=== PATIENT | female | born 2000 | race Two or more races ===

== ENCOUNTER 2023-07-26 12:58 | Emergency (ER) | payer OTHER, SELFPAY ==
[2023-07-26 12:59] VITALS: BP 135/84; PULSE 74; RESP 16; TEMP 37; O2SAT 98; BMI 22.9
--- NOTE | 2023-07-26 13:02 | ED_ITS ---
HPI - General Adult General Chief complaint: Eye Problems Stated complaint: r eye issue Time Seen by Provider: 07/26/23 13:01 Source: patient Mode of arrival: ambulatory Limitations: no limitations History of Present Illness HPI narrative: Patient is a 22 year old assigned female at with no reported medical history presenting to the emergency department today with right eye swelling. Patient states that last week she had false eye lashes placed and yesterday, she noticed pain in her right eye and was removing discharge that she believes was nail glue from her right eye. Patient states that she had the lashes removed yesterday and woke up today with a swollen eye. Patient denies any dizziness, lightheadedness, abdominal pain, nausea, vomiting, fever, chills, blurry vision, double vision, loss of vision, chest pain, difficulty breathing, shortness of breath, back pain, night sweats, pain with urination, increased urinary frequency, increased urinary urgency, blood in her urine or stool, syncope or a near syncopal episode, recent trauma or falls, bowel incontinence, bladder incontinence, bowel retention, bladder retention, or any other complaints at this time. Onset (ago): hour(s) Location: eyes and right Severity: mild Relieving factors: none Exacerbating factors: none Associated symptoms: denies other symptoms Treatments prior to arrival: none Related Data Previous Rx's Medication Instructions Recorded erythromycin 5 mg/gram (0.5 %) eye 0.5 inch ophthalmic (eye) Q4H #3.5 07/26/23 ointment grams Allergies Allergy/AdvReac Type Severity Reaction Status Date / Time No Known Allergies Allergy Verified 07/26/23 13:03 Review of Systems Constitutional: Constitutional: Reports no additional constitutional complaints, Denies chills, Denies fever(s) and Denies night sweats Eyes: Eyes: Reports no additional eye complaints, Denies blurry vision, Denies change in vision, Denies diplopia, Reports eye discharge, Denies loss of vision and Reports eye pain ENT: Denies dizziness Cardiovascular: Cardiovascular: Reports no additional cardiovascular complaints, Denies chest pain, Denies lightheadedness, Denies Loss of Consciousness and Denies dyspnea Respiratory: Respiratory: Reports no additional respiratory complaints and Denies dyspnea Gastrointestinal: Gastrointestinal: Reports no additional gastrointestinal complaints, Denies abdominal pain, Denies melena, Denies hematochezia, Denies change in bowel habits and Denies change in stool character Genitourinary: Genitourinary: Denies hematuria, Denies urinary frequency, Denies dysuria, Denies urinary incontinence, Denies urinary hesitancy and Denies urinary urgency Musculoskeletal: Musculoskeletal: Reports no additional musculoskeletal complaints, Denies numbness and Denies tingling Neurologic: Denies dizziness, Denies loss of vision, Denies numbness and Denies tingling Psychiatric: Psychiatric: Reports no additional psychiatric complaints Endocrine: Endocrine: Reports no additional endocrine complaints Hematologic/Lymphatic: Hematologic/Lymphatic: Reports no additional hematologic/lymphatic complaints Allergic/Immunologic: Allergic/Immunologic: Reports no additional allergic/immunologic complaints PMFSH Past Medical History Attestation statement: The following information was validated with the patient. Source: old records reviewed and nursing notes reviewed Social History Social History Advance Directives: No Advance Directives Information Provided: No Physical Exam ED Vital Signs: Vital Signs - 24 hr 07/26/23 12:59 Temperature 98.6 F Pulse Rate 74 Respiratory Rate 16 Blood Pressure 135/84 Pulse Oximetry 98 Oxygen Delivery Method Room Air BMI result Body Mass Index 22.9 Const General: cooperative, no acute distress, alert and awake Nutritional Appearance: well nourished Orientation/consciousness: patient oriented x3 Limitations: no limitations HENMT Head: Yes normal to inspection and Yes atraumatic Ears: hearing grossly normal bilaterally and external ears normal General nose exam: Normal external nose present, no nasal discharge noted and no epistaxis Face and sinus: Yes normal facial exam, No abrasion and No laceration Mouth: Normal oral and palatal mucosa present, no drooling and no muffled voice Eyes Other: right corneal abrasion with periorbital swelling Pupils: Equal, round and reactive pupils present EOM: EOMs intact bilaterally Neck Neck: Yes normal visual inspection, Yes full ROM and Yes no lymphadenopathy Chest Chest palpation & inspection: normal inspection of the chest Resp Effort & Inspection: normal respiratory effort and able to speak in complete sentences GI Inspection: Yes normal to inspection Neuro General: patient oriented x3 and moves all extremities Cranial nerves: Yes Equal, round and reactive pupils present Cognition (Neuro): normal cognition Motor exam (neuro): 5/5 motor strength present throughout Sensory Exam: Normal double simultaneous stimulation for sensation Coordination: [id number]-[id number] test normal Extrem General: Yes normal to inspection, Yes full ROM and Yes capillary refill normal Psych Appearance: grossly normal Mental Status: mental status grossly normal Affect: normal affect Attitude: cooperative Thought process: Normal thought process present Thought content: Normal thought content present Insight: Good insight present (Psych) Medical Decision Making Medical Decision Making MDM Narrative: Patient is a 22 year old assigned female at with no reported medical history presenting to the emergency department today with right eye pain. Patient's physical exam was as noted in the physical exam portion of this note. I explained my physical exam findings to the patient. I answered all questions asked by the patient. I stressed the importance of the patient taking her medication as prescribed. I stressed the importance of the patient following up with her primary care provider. I stressed the importance of the patient returning to the emergency department immediately if her symptoms were to worsen or if she were to develop any dizziness, shortness of breath, difficulty breathing, chest pain, blurry vision, loss of vision, nausea, vomiting, abdominal pain, fever, chills, back pain, or any other complaints. Patient verbalized agreement and understanding with this treatment plan and discharge. Differential Diagnosis Differential Diagnoses: The differential diagnosis associated with the presentation includes Right corneal abrasion Admission/Observation Consideration of admission/observation: Escalation of care including admission/observation considered Patient would have been admitted to the hospital had her work up had any findings where hospital admission was appropriate and her clinical presentation warranted hospital admission. Prescription Management I considered prescription management with: Antibiotic (patient prescribed an antibiotic for her corneal abrasion) Discharge Plan Discharge Clinical Impression: Abrasion, corneal Patient Disposition: Home, Self-Care Instructions: Corneal Abrasion (DC) Additional Instructions: Follow up with your primary care provider and an intelligence operations specialist. Return to the emergency department immediately if your symptoms worsen or if you develop any dizziness, shortness of breath, difficulty breathing, chest pain, blurry vision, loss of vision, nausea, vomiting, abdominal pain, fever, chills, back pain, or any other complaints. Prescriptions: New erythromycin 5 mg/gram (0.5 %) ointment 0.5 inch ophthalmic (eye) Q4H Qty: 3.5 0RF Referrals: [facility] [place] Family Medicine [Provider Group] (Call to establish and follow up with a primary care provider. If you already have a primary care provider, please follow up with them.) [facility] [place] [facility] [Provider Group] (Call to establish and follow up with a primary care provider. If you already have a primary care provider, please follow up with them.) [facility] We[facility] [Provider Group] (Call to establish and follow up with a primary care provider. If you already have a primary care provider, please follow up with them.) Chapo Vidal [Physician] - (Call to establish and follow up with an intelligence operations specialist if this issue continues after your antibiotic use. ) Interventions: ED Discharge Assessment Last Done: 07/26/23 13:05 Discharge Date/Time: 07/26/23 13:11 Print Language: Botswanan
== END 2023-07-26 13:11 | disposition home or self-care (01) ==
LOC: HO.ED 13:10
PROVIDERS: Emergency Provider Student in an Organized Health Care Education/Training Program
DX: S05.01XA Injury of conjunctiva and corneal abrasion without foreign body, right eye, initial encounter (principal); X58.XXXA Exposure to other specified factors, initial encounter; Y93.9 Activity, unspecified; Y92.9 Unspecified place or not applicable; Y99.9 Unspecified external cause status
CPT/HCPCS: 99282; 99283

== ENCOUNTER 2023-11-29 23:01 | Emergency (ER) | payer OTHER, SELFPAY ==
[2023-11-29 23:15] VITALS: BP 110/65; PULSE 80; RESP 16; TEMP 36.6; O2SAT 97; BMI 23.5
[2023-11-29 23:35] LABS: Basophils Percent Auto 0.2 % (0-2); Eosinophils Absolute Auto 0.3 X10*3/uL (0.0-0.4); Hematocrit 35.3 % (37.0-47.0); Hemoglobin 11.9 g/dl (12.0-16.0); Imm Gran Abs Auto 0.03 X10*3/uL (0.00-0.03); Imm Gran Pct Auto 0.4 % (0.0-0.4); Lymphocytes Absolute Auto 3.4 X10*3/uL (1.2-4.9); Lymphocytes Percent Auto 40.7 % (20-40); MANUAL DIFF FLAG NO; Mean Corpuscular HGB Conc 33.7 g/dl (31.0-35.0); Mean Corpuscular Hemoglobin 29.1 pg (27.0-33.0); Mean Corpuscular Volume 86.3 fL (80.0-98.0); Mean Platelet Volume 8.9 fL (9.4-12.3); Monocytes Absolute Auto 0.6 X10*3/uL (0.1-1.2); Monocytes Percent Auto 6.7 % (2-11); Neutrophils Absolute Auto 4.1 x10*3/uL (2.0-8.3); Platelet Count 222 X10*3/uL (160-400); Red Blood Count 4.09 X10*6/uL (4.20-5.50); Red Cell Distribution Width 13.4 % (11.0-16.0); White Blood Count 8.5 X10*3/uL (4.8-10.8)
[2023-11-29 23:52] LABS: Alanine Aminotransferase 10 U/L (0-31); Albumin Level 4.1 g/dL (3.5-5.0); Alkaline Phosphatase 87 U/L (39-117); Anion Gap 14 (12-20); Aspartate Amino Transferase 12 U/L (5-31); Bilirubin Total 0.2 mg/dL (0.0-1.0); Blood Urea Nitrogen 12 mg/dL (9-16); Carbon Dioxide 23 mmol/L (22-29); Chloride 109 mmol/L (96-108); Creatinine Clr Calc Pharmacy 99.6; Estimated Glomerular Filt Rate > 60; Glucose Random 111 mg/dL (60-115); Sodium 142 mmol/L (135-145); Total Protein 6.8 g/dL (6.5-8.0)
--- OUTSIDE RECORDS SUMMARY | 2023-11-29 23:58 | XMS_ITS | Continuity of Care Document ---
Author Organization [facility] Adult Medicine Address [address] [place] [address]- Care Team Providers Care Sessions Clerk Name Role Phone Romulo Partida MD, Chapo Almeida Primary Care Physician [phone] Encounter [facility] Date(s): 07/15/23 - 08/14/23 [facility] [address], [place] [address] Allergies, Adverse Reactions, Alerts No Known Allergies Immunizations Given and Recorded Vaccine Date Status Refusal Reason tetanus/diphtheria/pertussis, acel(Tdap) 05/29/20 Given Meningococcal Conjugate Vaccine 10/06/17 Recorded Human Papillomavirus Vaccine 08/31/15 Recorded Hepatitis A Pediatric Vaccine 08/31/15 Recorded Medications ferrous sulfate 325 mg oral tablet 1 tablet = 325 mg, By Mouth, Every other day, # 90 tablet, 3 Refills, Maintenance, 05/29/23 15:02:00 EDT, Tablet, [id number], Partial fill upon patient request if the prescription is for a schedule II opioid drug., 158, cm, 05/29/23 14:54:00 E... Start Date: 05/29/23 Status: Ordered mirtazapine 15 mg oral tablet 1 tablet = 15 mg, By Mouth, Daily at bedtime, # 90 tablet, 3 Refills, Maintenance, 05/29/23 15:02:00 EDT, Tablet, [id number], Partial fill upon patient request if the prescription is for a schedule II opioid drug., 158, cm, 05/29/23 14:54:00 E... Start Date: 05/29/23 Status: Ordered tiZANidine 4 mg oral tablet 8 mg, 2, tablet, By Mouth, Every 8 hours, prn back pain, may cause drowsiness, # 30 tablet, Refills0, Tot. Refills 0, Maintenance, 07/17/23 16:51:00 EST, Route to Pharmacy Electronically, [id number], Partial fill upon patient request if the p... Start Date: 07/17/23 Status: Ordered Problem List Condition Confirmation Course Effective Dates Status Health St atus Informant Depression Confirmed Active History of chlamydia Confirmed 2019 Active Iron deficiency anemia Confirmed Active Marijuana use Confirmed 2019 Active Poor appetite Confirmed Active Hepatitis C Confirmed Active Social History Social History Type Response Smoking Status Never (less than 100 in lifetime); Tobacco user in household: No entered on: 01/11/20 Sex Patient Care team information Care Team Personnel Name: Romulo Partida MD, Chapo Almeida Position: S Resident Member Role: PCP Address: Address: [address] [place] [address] [place] [address]- Care Team Related Persons Name: MAXINE LOVETT Address: home [address] [place] [address] Name: JOYCE LOVETT Address: home [address] [place] [address] Name: RAFY SHERIFF Address: [place] [address] Name: BERNARDO PALMER Address: [address] Address: home [address] [place] [address]
--- OUTSIDE RECORDS SUMMARY | 2023-11-29 23:58 | XMS_ITS | Continuity of Care Document ---
Author Organization [facility] Address [address] [address]- Care Team Providers Care Health Teacher Name Role Phone Bar MERCEDES, Juani Lewis Primary Care Physician [place] [facility] [place] 09[place]/20 [facility] [address] [address] Attending Physician: Not on Staff, Attending MD Referring Physician: Phyllis Khan CNM Allergies, Adverse Reactions, Alerts Substance Reaction Severity Status NKA Active Immunizations Given and Recorded Vaccine Date Status Refusal Reason tetanus/diphtheria/pertussis, acel(Tdap) 05/29/20 Given Medications Depo-Provera Contraceptive 150 mg/mL intramuscular suspension 1 mL = 150 mg, Intramuscular, Every 3 months, # 1 mL, 3 Refills, Maintenance, 09/19/20 18:28:00 EST, Suspension, [facility], Partial fill upon patient request if the prescription is for a schedule II opioid drug., 158, cm, 08/26/20 9:... Start Date: 09/19/20 Status: Ordered PNV Select oral tablet 1 tablet, By Mouth, Daily, 0 Refills, Maintenance, 01/11/20 16:04:00 EDT Start Date: 01/11/20 Status: Ordered Problem List Condition Effective Dates Status Health Status Inform ant History of chlamydia(Confirmed) 2020 Active Marijuana use(Confirmed) 2020 Active Hepatitis C(Confirmed) Active Social History Social History Type Response Smoking Status Never (less than 100 in lifetime); Tobacco user in household: No entered on: 01/11/20 Sex
--- OUTSIDE RECORDS SUMMARY | 2023-11-29 23:58 | XMS_ITS | Continuity of Care Document ---
Author Organization [facility] Address Unknown Care Team Providers Care Linen Attendant Name Role Phone Juani Dinero MD Primary Care Physician [place] [facility] [place] [facility] Attending Physician: Not on Staff, Attending MD Admitting Physician: Saima Douglas MD Referring Physician: Juani Dinero MD Allergies, Adverse Reactions, Alerts Substance Reaction Severity Status NKA Active Immunizations Given and Recorded Vaccine Date Status Refusal Reason tetanus/diphtheria/pertussis, acel(Tdap) 05/29/20 Given Medications Depo-Provera Contraceptive 150 mg/mL intramuscular suspension 1 mL = 150 mg, Intramuscular, Every 3 months, # 1 mL, 3 Refills, Maintenance, 09/19/20 18:28:00 EST, Suspension, [facility], Partial fill upon patient [...]
--- OUTSIDE RECORDS SUMMARY | 2023-11-29 23:58 | XMS_ITS | Continuity of Care Document ---
Author Organization [facility] Address [address] [address]- Care Team Providers Care Maintenance Shop Technician Name Role Phone Bar MERCEDES, Juani Lewis Primary Care Physician [phone] [place] [facility] [place]12/22 - 04/11/22 [facility] [address] [place] [id number] Allergies, Adverse Reactions, Alerts No Known Allergies Immunizations Given and Recorded Vaccine Date Status Refusal Reason tetanus/diphtheria/pertussis, acel(Tdap) 05/29/20 Given Medications Depo-Provera Contraceptive 150 mg/mL intramuscular suspension 1 mL = 150 mg, Intramuscular, Every 3 months, # 1 mL, 3 Refills, Maintenance, 09/19/20 18:28:00 EST, Suspension, [facility], Partial fill upon patient request if the prescription is for a schedule II opioid drug., 158, cm, 08/26/20 9:... Start Date: 09/19/20 Status: Ordered PNV Select oral tablet 1 tablet, By Mouth, Daily, 0 Refills, Maintenance, 01/11/20 16:04:00 EDT Start Date: 01/11/20 Status: Ordered Xulane 150 mcg-35 mcg/24 hr transdermal film, extended release See Instructions, 1 patch Topically apply a new patch weekly for 3 weeks, remove for 1 week, then repeat cycle, # 3 each, 11 Refills, Maintenance, 03/12/22 17:28:00 EDT, [id number], Partial fill upon patient request if the prescription is for... Start Date: 03/12/22 Status: Ordered Problem List Condition Effective Dates Status Health Status Inform ant History of chlamydia(Confirmed) 2020 Active Marijuana use(Confirmed) 2019 Active Hepatitis C(Confirmed) Active Social History Social History Type Response Smoking Status Never (less than 100 in lifetime); Tobacco user in household: No entered on: 01/11/20 Sex Care Team Personnel Name: Bar MERCEDES, Juani Lewis Address: [address] [place] [address] [facility] [place], [place] [address]
--- OUTSIDE RECORDS SUMMARY | 2023-11-29 23:58 | XMS_ITS | Continuity of Care Document ---
Author Organization [facility] Address [address] [place] [address]- Care Team Providers Care Early Childhood Education Worker Name Role Phone Bar MERCEDES, Juani Lewis Primary Care Physician [place] [facility] [place] Date(s): 12/31/19 - 01/07/20 [facility] [address] [place] [address] [facility] Attending Physician: Franko Acharya MD Referring Physician: Juani Dinero MD Allergies, Adverse Reactions, Alerts Substance Reaction Severity Status Peanuts Active Egg Allergy Peanut Active
--- OUTSIDE RECORDS SUMMARY | 2023-11-29 23:58 | XMS_ITS | Continuity of Care Document ---
Author Organization [facility] Adult Medicine Address [address] [place] [address]- Care Team Providers Care Disability Liaison Officer Name Role Phone Romulo Partida MD, Chapo Almeida Primary Care Physician Encounter [facility] Date(s): 05/29/23 - 06/28/23 [facility] [address] [place] [address]- Attending Physician: Sarah Beal Admitting Physician: Sarah Beal Referring Physician: AdmtrSarah Allergies, Adverse Reactions, Alerts No Known Allergies [...] 14:54:00 E... Start Date: 05/29/23 Status: Ordered Problem List Condition Confirmation Course Effective Dates Status Health St atus Informant Depression Confirmed Active History of chlamydia Confirmed 2020 Active Iron deficiency anemia Confirmed Active Marijuana use Confirmed 2020 Active Poor appetite Confirmed Active Hepatitis C Confirmed Active Social History Social History Type Response Smoking Status Never (less than 100 in lifetime); Tobacco user in household: No entered on: 01/11/20 Sex Patient Care team information Care Team Personnel Name: Chapo Arteaga MD Position: S Resident Member Role: PCP Address: Address: [address] [place] [address]- Care Team Related Persons Name: MAXINE LOVETT Address: home [address] [place] [address] Name: JOYCE LOVETT Address: home [address] [place] [address] Name: RAFY SHERIFF Address: [place] [address] Name: BERNARDO PALMER Address: [address] Address: [place] [address]
--- OUTSIDE RECORDS SUMMARY | 2023-11-29 23:58 | XMS_ITS | Continuity of Care Document ---
Author Organization [facility] Address [address] [facility], [address] [address]- Care Team Providers Care Head Turbine Operator Name Role Phone Bar MERCEDES, Juani Lewis Primary Care Physician [place] [facility] [place]03[place]20 - 02/10/20 [facility] [address] [facility], [address] [place] [address] [facility] Attending Physician: Ayesha Odom MD Admitting Physician: Anna Pimentel CNM Referring Physician: Anna Pimentel CNM Allergies, Adverse Reactions, Alerts Substance Reaction Severity Status NKA Active Medications PNV Select oral tablet 1 tablet, By Mouth, Daily, 0 Refills, Maintenance, 01/11/20 16:04:00 EDT Start Date: 01/11/20 Status: Ordered Problem List Condition Effective Dates Status Health Status Inform ant History of chlamydia(Confirmed) 2019 Active Marijuana use(Confirmed) 2019 Active Encounter for supervision of other normal , unspecified trimester(Confirmed) Active Hepatitis C(Confirmed) Active Vital Signs Most recent to oldest [Reference Range]: 1 Height 159 cm (02/03/20 2:30 PM) Weight 50 kg (02/03/20 2:30 PM) Body Mass Index [18.5-24.99] 19.78 (02/03/20 2:30 PM) Blood Pressure [71-110/30-71 mm Hg] 104/ 59mm Hg (02/03/20 2:30 PM) Blood pressure sites Arm, right (02/03/20 2:30 PM) Dry Weight 50 kg (02/03/20 2:30 PM) Weight Obtained Via Standing scale (02/03/20 2:30 PM) Dry Weight Obtained Via Standing scale (02/03/20 2:30 PM) Social History Social History Type Response Smoking Status Never (less than 100 in lifetime); Tobacco user in household: No entered on: 01/11/20 Sex
--- OUTSIDE RECORDS SUMMARY | 2023-11-29 23:58 | XMS_ITS | Continuity of Care Document ---
Author Organization [facility] Address [address] [address]- Care Team Providers Care Senior Air Director Name Role Phone Bar MERCEDES, Juani Lewis Primary Care Physician [phone] [facility] [place] 07/05/[place] - 08/17/20 [facility] [address] [address] Attending Physician: Not on Staff, Attending MD Referring Physician: Flavia Ford CNM Allergies, Adverse Reactions, Alerts Substance Reaction Severity Status NKA Active Immunizations Given and Recorded Vaccine Date Status Refusal Reason tetanus/diphtheria/pertussis, acel(Tdap) 05/29/20 Given Medications ferrous sulfate 325 mg oral tablet 1 tablet = 325 mg, By Mouth, Daily, # 30 tablet, 6 Refills, Maintenance, 06/06/20 15:04:00 EST, Tablet, [id number], 159, cm, 05/29/20 13:51:00 EDT, Height, 52.3, kg, 04/04/20 14:12:00 EDT, Dry Weight Start Date: 06/06/20 Status: Ordered PNV Select oral tablet 1 [...]
--- OUTSIDE RECORDS SUMMARY | 2023-11-29 23:58 | XMS_ITS | Continuity of Care Document ---
Author Organization [facility] Address [address] [address]- Care Team Providers Care Compensation Administrator Name Role Phone Bar MERCEDES, Juani Lewis Primary Care Physician En[place] [facility] [place] Date(s): 06/14/20 - [facility] [address] [address] Attending Physician: Marilia Nguyen CNM Admitting Physician: Marilia Nguyen CNM Referring Physician: Marilia Nguyen CNM Allergies, Adverse Reactions, Alerts Substance Reaction Severity Status NKA Active Immunizations Given and Recorded Vaccine Date Status Refusal Reason tetanus/diphtheria/pertussis, acel(Tdap) 05/29/20 Given Medications ferrous sulfate 325 mg oral tablet 1 tablet = 325 mg, By Mouth, Daily, # 30 tablet, 6 Refills, Maintenance, 06/06/20 15:04:00 EST, Tablet, [id number], 159, cm, 05/29/20 13:51:00 EDT, Height, 52.3, kg, 04/04/20 14:12:00 EDT, Dry Weight Start Date: 06/06/20 Status: Ordered PNV Select oral tablet 1 tablet, By Mouth, Daily, 0 Refills, Maintenance, 01/11/20 16:04:00 EDT Start Date: 01/11/20 Status: Ordered Problem List Condition Effective Dates Status Health Status Inform ant History of chlamydia(Confirmed) 2019 Active Marijuana use(Confirmed) 2019 Active Hepatitis C(Confirmed) Active Social History Social History Type Response Smoking Status Never (less than 100 in lifetime); Tobacco user in household: No entered on: 01/11/20 Sex
--- OUTSIDE RECORDS SUMMARY | 2023-11-29 23:58 | XMS_ITS | Continuity of Care Document ---
Author Organization [facility] Address [address] [place] [address]- Care Team Providers Care Manager Of Sales Name Role Phone Juani Dinero MD Primary Care Physician [phone] [place] [facility] [place] 11[place]16/19 [facility] [address] [place] [address] [facility] Attending Physician: Franko Acharya MD Referring Physician: Juani Dinero MD Allergies, Adverse Reactions, Alerts Substance Reaction Severity Status Peanuts Active Egg Allergy Peanut Active
--- OUTSIDE RECORDS SUMMARY | 2023-11-29 23:58 | XMS_ITS | Continuity of Care Document ---
Author Organization [facility] Karol rizo [facility] Address [address] [place] [address]- Care Team Providers Care Ceo And President Name Role Phone Bar MERCEDES, Juani Lewis Primary Care Physician Encounter [facility] Date(s): 04/04/20 - 04/11/20 [facility] Karol [employer] [facility] [address] [place] [address]- [facility] Attending Physician: Mia Jarquin MD Referring Physician: Phyllis Khan CNM Allergies, [...]
[2023-11-29] MEDS: Ondansetron ODT 4 MG TAB.RAPDIS TRANSLINGU (23:59)
--- OUTSIDE RECORDS SUMMARY | 2023-11-29 23:59 | XMS_ITS | Continuity of Care Document ---
Author Organization [facility] Address [address] [place] [address]- Care Team Providers Care Manager Ethics Name Role Phone Juani Dinero MD Primary Care Physician En[place] [facility] [facility] [id number] Date(s): 07/24/22 - 08/23/[address] [address] Attending Physician: Sarah Beal Admitting Physician: AdmtrSarah Referring Physician: AdmtrSarah Allergies, Adverse Reactions, Alerts No Known Allergies Immunizations Given and Recorded Vaccine Date Status Refusal Reason tetanus/diphtheria/pertussis, acel(Tdap) 05/29/20 Given Medications Depo-Provera Contraceptive 150 mg/mL intramuscular suspension 1 mL = 150 mg, Intramuscular, Every 3 months, # 1 mL, 3 Refills, Maintenance, 09/19/20 18:28:00 EST, Suspension, [facility], Partial fill upon patient [...] cycle, # 3 each, 11 Refills, Maintenance, 05/06/22 17:42:00 EDT, [facility] #[id number], Partial fill upon patient request if the prescripti... Start Date: 05/06/22 Status: Ordered Problem List Condition Confirmation Course Effective Dates Status Health St [facility] Informant History of chlamydia Confirmed 2019 Active Marijuana use Confirmed 2019 Active Hepatitis C Confirmed Active Social History Social History Type Response Smoking Status Never (less than 100 in lifetime); Tobacco user in household: No entered on: 01/11/20 Sex Patient Care team information Care Team Personnel Name: Juani Dinero MD Position: [facility] General Pediatrics MD Member Role: PCP Address: Address: [address] [place] [address] [facility] [address] Care Team Related Persons Name: MAXINE LOVETT Address: home [address] [place] [address] Name: JOYCE LOVETT Address: home [address] [place] [address] Name: RAFY SHERIFF Address: [place] [address] Name: BERNARDO PALMER Address: [address] Address: [address]
--- OUTSIDE RECORDS SUMMARY | 2023-11-29 23:59 | XMS_ITS | Continuity of Care Document ---
Author Organization [facility] Address [address] [place] [address]- Care Team Providers Care Swimming Pool Serviceperson Name Role Phone Bar MERCEDES, Juani Lewis Primary Care Physician [phone] Encounter [facility] Date(s): 11/09/19 - 11/19/19 [facility] [address] [place] [address]- [facility] Attending Physician: Admtr, Ar8 Admitting Physician: Admtr, Ar8 Referring Physician: Admtr, Ar8 Allergies, Adverse Reactions, Alerts Substance Reaction Severity Status Peanuts Active Egg Allergy Peanut Active
--- OUTSIDE RECORDS SUMMARY | 2023-11-29 23:59 | XMS_ITS | Continuity of Care Document ---
Author Organization [facility] Address Unknown Care Team Providers Care Marine Fuel Dock Attendant Name Role Phone Bar MERCEDES, Juani Lewis Primary Care Physician Encounter [facility] Date(s): 03/30/21 - 04/29/21 [facility] Attending Physician: Sarah Beal Admitting Physician: Sarah Beal Referring Physician: AdmtrSarah Allergies, Adverse Reactions, Alerts Substance Reaction Severity Status NKA Active Immunizations Given and Recorded Vaccine Date Status Refusal Reason tetanus/diphtheria/pertussis, acel(Tdap) 05/29/20 Given Medications Depo-Provera Contraceptive 150 mg/mL intramuscular suspension 1 mL = 150 mg, Intramuscular, Every 3 months, # 1 mL, 3 Refills, Maintenance, 09/19/20 18:28:00 EST, Suspension, [facility], Partial fill upon [...]
--- OUTSIDE RECORDS SUMMARY | 2023-11-29 23:59 | XMS_ITS | Continuity of Care Document ---
Author Organization [facility] ter Address [address] [place] [address]- Care Team Providers Care Pullman Car Repairer Name Role Phone Juani Dinero MD Primary Care Physician [place] [facility]): [place]/24/20 - 08/24/[address] [address]- Discharge Disposition: A-D/C Home Attending Physician: Ayesha Odom MD Admitting Physician: Ayesha Odom MD Referring Physician: Ayesha Odom MD Allergies, Adverse Reactions, Alerts Substance Reaction Severity Status NKA Active Immunizations Given and Recorded Vaccine Date Status Refusal Reason tetanus/diphtheria/pertussis, acel(Tdap) 05/29/20 Given Medications ferrous sulfate 325 mg oral tablet 1 tablet = 325 mg, By Mouth, Daily, # 30 tablet, 6 Refills, Maintenance, 06/06/20 15:04:00 EST, Tablet, [facility] #[id number], 159, cm, 05/29/20 13:51:00 EDT, Height, 52.3, kg, 04/04/20 14:12:00 EDT, Dry Weight Start Date: 06/06/20 Status: Ordered PNV Select oral tablet 1 tablet, By Mouth, Daily, 0 Refills, Maintenance, 01/11/20 16:04:00 EDT Start Date: 01/11/20 Status: Ordered Problem List Condition Effective Dates Status Health Status Inform ant History of chlamydia(Confirmed) 2020 Active Marijuana use(Confirmed) 2019 Active Hepatitis C(Confirmed) Active Vital Signs Most recent to oldest [Reference Range]: 1 Weight 60.0 kg (08/24/20 9:09 AM) Blood Pressure [71-110/30-71 mm Hg] 120/ 76mm Hg *H* (08/24/20 9:16 AM) Respiratory Rate [16-30 br/min] 20 br/mi n (08/24/20 9:16 AM) Temperature [96.8-100.4 DegF] 98.0 DegF (08/24/20 9:16 AM) Blood pressure sites Arm, right (08/24/20 9:16 AM) Temperature Route Oral (08/24/20 9:16 AM) Dry Weight 60.0 kg (08/24/20 9:09 AM) Weight Obtained Via Standing scale (08/24/20 9:09 AM) Dry Weight Obtained Via Standing scale (08/24/20 9:09 AM) Social History Social History Type Response Smoking Status Never (less than 100 in lifetime); Tobacco user in household: No entered on: 01/11/20 Sex
--- OUTSIDE RECORDS SUMMARY | 2023-11-29 23:59 | XMS_ITS | Continuity of Care Document ---
Author Organization [facility] Address [address] [place] [address]- Care Team Providers Care Box Blank Machine Operator Helper Name Role Phone Chapo Arteaga MD Primary Care Physician [phone] [id number] Date(s): 10/10/22 - 11/30/22 [facility] [address] [place] [address]- [place] Attending Physician: Nikolas Powell MD Admitting Physician: Nikolas Powell MD Allergies, Adverse Reactions, Alerts No Known Allergies Immunizations Given and Recorded Vaccine Date Status Refusal Reason tetanus/diphtheria/pertussis, acel(Tdap) 05/29/20 Given Meningococcal Conjugate Vaccine 10/06/17 Recorded Human Papillomavirus Vaccine 08/31/15 Recorded Hepatitis A Pediatric Vaccine 08/31/15 Recorded Medications cetirizine 5 mg oral tablet = 5 mg, By Mouth, Daily, # 30 tablet, 0 Refills, Maintenance, 10/10/22 9:26:00 EST, Tablet, [facility] Partial fill upon patient request if the prescription is for a schedule II opioid drug., 158, cm, 10/10/22 8:31:00 EST, Height Start Date: 10/10/22 Status: Ordered Problem List Condition Confirmation Course [...] S Resident Member Role: PCP Address: Address: [address] [place], [place] [address] Care Team Related Persons Name: MAXINE LOVETT Address: home [address] [place] [address] Name: JOYCE LOVETT Address: home [address] [place] [address] Name: RAFY SHERIFF Address: [place] [address] Name: BERNARDO PALMER Address: [address] Address: [address] [address]
--- OUTSIDE RECORDS SUMMARY | 2023-11-29 23:59 | XMS_ITS | Continuity of Care Document ---
Author Organization [facility] Address [address] [address]- Care Team Providers Care Driller'S Offsider Name Role Phone Romulo Partida MD, Chapo Almeida Primary Care Physician [facility] [facility] Date(s): 08/12/23 - 09/11/23 [facility] [address] [address] Attending Physician: Sarah Beal Admitting Physician: AdmSarah hobbs Referring Physician: AdmtrSarah Allergies, Adverse Reactions, Alerts [...] 14:54:00 E... Start Date: 05/29/23 Status: Ordered fluconazole 150 mg oral tablet 1 tablet = 150 mg, By Mouth, Once, Take one tablet, once. If symptoms persist or return in 3-5 days, may take second dose., # 2 tablet, 0 Refills, Soft Stop, 09/02/23 16:34:00 EST, Tablet, [id number], Partial fill upon patient request if the p... Start Date: 09/02/23 Status: Ordered mirtazapine 15 mg oral tablet [...] 07/17/23 16:51:00 EST, Route to Pharmacy Electronically, [facility] #[id number], Partial fill upon patient request if [...] S Resident Member Role: PCP Address: Address: [address] [place] [address]- Care Team Related Persons Name: MAXINE LOVETT Address: home [address] [place] [address] Name: JOYCE LOVETT Address: home [address] [place] [address] Name: RAFY SHERIFF Address: [place] [address] Name: BERNARDO PALMER Address: Address: [address]
--- OUTSIDE RECORDS SUMMARY | 2023-11-29 23:59 | XMS_ITS | Continuity of Care Document ---
Author Organization [facility] Address [address] [address]- Care Team Providers Care Appraiser Timber Name Role Phone Bar MERCEDES, Juani Lewis Primary Care Physician Encounter [facility] Date(s): 10/20/20 - 11/19/20 [facility] [address] [address] Attending Physician: Sarah Beal Admitting Physician: AdmtrSarah Referring Physician: AdmtrSarah Allergies, Adverse Reactions, Alerts Substance Reaction Severity Status NKA Active Immunizations Given and Recorded Vaccine Date Status Refusal Reason tetanus/diphtheria/pertussis, acel(Tdap) 05/29/20 Given Medications Depo-Provera Contraceptive 150 mg/mL intramuscular suspension 1 mL = 150 mg, Intramuscular, Every 3 months, # 1 mL, 3 Refills, Maintenance, 09/19/20 18:28:00 EST, Suspension, [facility], Partial fill upon patient [...]
--- OUTSIDE RECORDS SUMMARY | 2023-11-29 23:59 | XMS_ITS | Continuity of Care Document ---
Author Organization [facility] Address [address] [address]- Care Team Providers Care Sales Appointment Coordinator Name Role Phone Bar MERCEDES, Juani Lewis Primary Care Physician [place] [facility] Date(s): 08/01/20 - 08/31/20 [facility] [address] [place] [address] Allergies, Adverse Reactions, Alerts Substance Reaction Severity Status NKA Active Immunizations Given and Recorded Vaccine Date Status Refusal Reason tetanus/diphtheria/pertussis, acel(Tdap) 05/29/20 Given Medications ibuprofen 600 mg oral tablet 600 mg, 1, tablet, By Mouth, Every 6 hours, for 10 days, # 40 tablet, Refills 0, Tot. Refills 0, Acute 09/05/20 17:08:00 EST, 08/26/20 17:08:00 EST, Route to Pharmacy Electronically, [facility][id number], Partial fill upon patient request if th... Start Date: 08/26/20 Stop Date: 09/05/20 Status: Ordered PNV Select oral tablet 1 tablet, By Mouth, Daily, 0 Refills, Maintenance, 01/11/20 16:04:00 EDT Start Date: 01/11/20 Status: Ordered Tylenol Extra Strength 500 mg oral tablet 2 tablet = 1,000 mg, By Mouth, Every 6 hours, PRN for pain, for 10 days, # 50 tablet, 1 Refills, Acute 09/15/20 17:09:00 EST, 08/26/20 17:09:00 EST, Tablet, [facility] #[id number], Partial fill upon patient request if the prescription is for a sc... Start Date: 08/26/20 Stop Date: 09/15/20 Status: Ordered Problem List Condition Effective Dates Status Health Status Inform ant History of chlamydia(Confirmed) 2020 Active Marijuana use(Confirmed) 2020 Active Hepatitis C(Confirmed) Active Social History Social History Type Response Smoking Status Never (less than 100 in lifetime); Tobacco user in household: No entered on: 01/11/20 Sex
--- OUTSIDE RECORDS SUMMARY | 2023-11-29 23:59 | XMS_ITS | Continuity of Care Document ---
Author Organization [facility] Address [address] [place] [address]- Care Team Providers Care Databases Software Consultant Name Role Phone Juani Dinero MD Primary Care Physician Encounter [facility] Date(s): 08/29/22 - 09/28/22 [facility] [address] [place], [place] [address] Allergies, Adverse Reactions, Alerts No Known Allergies Immunizations Given and Recorded Vaccine Date Status Refusal Reason tetanus/diphtheria/pertussis, acel(Tdap) 05/29/20 Given Medications Depo-Provera Contraceptive 150 mg/mL intramuscular suspension 1 mL = 150 mg, Intramuscular, Every 3 months, # 1 mL, 3 Refills, Maintenance, 09/19/20 18:28:00 EST, Suspension, [facility], Partial fill upon patient [...] each, 11 Refills, Maintenance, 05/06/22 17:42:00 EDT, [facility] #[id number], Partial fill upon patient request if the [...] Team Personnel Name: Juani Dinero MD Position: [facility] General Pediatrics MD Member Role: PCP Address: Address: [address] [place] [address] [facility] [place], [place] [address] Care Team Related Persons Name: MAXINE LOVETT Address: home [address] [place] [address] Name: BONY JOYCE Address: home [address] [place] [address] Name: RAFY SHERIFF Address: [place] [address] Name: BERNARDO PALMER Address: [address] Address: [address] [place] [address]
--- OUTSIDE RECORDS SUMMARY | 2023-11-29 23:59 | XMS_ITS | Continuity of Care Document ---
Author Organization [facility] Address [address] [place] [address]- Care Team Providers Care Casing Fluid Tender Name Role Phone Juani Dinero MD Primary Care Physician [phone] Encounter [facility] Date(s): 06/19/22 - 07/19/22 [facility] [address] [place], [place] [address] Allergies, Adverse Reactions, Alerts No Known Allergies Immunizations Given and Recorded Vaccine Date Status Refusal Reason tetanus/diphtheria/pertussis, acel(Tdap) 05/29/20 Given Medications Depo-Provera Contraceptive 150 mg/mL intramuscular suspension 1 mL = 150 mg, Intramuscular, Every 3 months, # 1 mL, 3 Refills, Maintenance, 09/19/20 18:28:00 EST, Suspension, [facility], Partial fill upon patient request [...] each, 11 Refills, Maintenance, 05/06/22 17:42:00 EDT, [facility] #[id number], Partial fill upon patient request if the [...] Team Personnel Name: Juani Dinero MD [facility] General Pediatrics MD Member Role: PCP Address: Address: [address] [place] [address] [facility] [place], [place] [address] Care Team Related Persons Name: MAXINE LOVETT Address: home [address] [place] [address] Name: BONY JOYCE Address: home [address] [place] [address] Name: RAFY SHERIFF Address: [place] [address] Name: BERNARDO PALMER Address: [address] Address: [address] [address] [place] [address]
--- OUTSIDE RECORDS SUMMARY | 2023-11-29 23:59 | XMS_ITS | Continuity of Care Document ---
Author Organization [facility] Karol Larose Address [address] [place] [address]- Care Team Providers Care Body Press Operator Name Role Phone Bar MERCEDES, Juani Lewis Primary Care Physician [place] [facility] [place]): [place] 05/04/20 [facility] [address] [place] [address]- [facility] Attending Physician: Admfaby, Rafael8 Admitting Physician: Admtr, Ar8 Referring Physician: Admtr, Ar8 Allergies, Adverse Reactions, Alerts Substance Reaction Severity Status NKA Active Medications Flagyl 500 mg oral tablet 1 tablet = 500 mg, By Mouth, Every 12 hours, for 5 days, # 10 tablet, 0 Refills, Acute 05/07/20 16:04:00 EDT, 05/02/20 16:04:00 EDT, Tablet, [facility] #[id number], 159, cm, 05/01/20 14:21:00 EDT, Height, 52.3, kg, 04/04/20 14:12:00 EDT, Dry Weight Start Date: 05/02/20 Stop Date: 05/07/20 Status: Ordered PNV Select oral tablet 1 [...]
--- OUTSIDE RECORDS SUMMARY | 2023-11-29 23:59 | XMS_ITS | Continuity of Care Document ---
Author Organization [facility] ter Address [address] [place] [address]- Care Team Providers Care Insulation Worker Apprentice Name Role Phone Juani Dinero MD Primary Care Physician [phone] Encounter [facility] [place] Date(s): 08/24/20 - 08/26/[address] [address] Discharge Disposition: A-D/C Home Attending Physician: Tabatha Steele MD Admitting Physician: Tabatha Steele MD Referring Physician: Tabatha Steele MD Allergies, Adverse Reactions, Alerts Substance Reaction Severity Status NKA Active Immunizations Given and Recorded Vaccine Date Status Refusal Reason tetanus/diphtheria/pertussis, acel(Tdap) 05/29/20 Given Medications Acetaminophen Tablet 650 mg, Tablet, By Mouth, Every 4 hours, PRN for Pain , Mild, (1-3), may give 325mg per patient preference and re-dose with 325mg within 4 hours, if needed. Patient should only receive a total of 650mg of Acetaminophen every 4 hours., Routine, 08/25... Start Date: 08/25/20 Stop Date: 08/27/20 Status: Discontinued ibuprofen 600 mg oral tablet 600 mg, 1, tablet, By Mouth, Every 6 hours, for 10 days, # 40 tablet, Refills 0, Tot. Refills 0, Acute 09/05/20 17:08:00 EST, 08/26/20 17:08:00 EST, Route to Pharmacy Electronically, [facility][id number], Partial fill upon patient request if th... [...] 09/15/20 17:09:00 EST, 08/26/20 17:09:00 EST, Tablet, [facility] #[id number], Partial fill upon patient request if the prescription is for a sc... Start Date: 08/26/20 Stop Date: 09/15/20 Status: Ordered Problem List Condition Effective Dates Status Health Status Inform ant History of chlamydia(Confirmed) 2019 Active Marijuana use(Confirmed) 2019 Active Hepatitis C(Confirmed) Active Vital Signs Most recent to oldest [Reference Range]: 1 2 3 Height 158 cm (08/26/20 9:13 AM) 158 cm (08/26/20 12:12 AM) 158 cm (08/25/20 5:07 PM) Weight 59.8 kg (08/24/20 11:03 PM) 59.8 kg (08/24/20 6:23 PM) Oxygen Saturation [94-100 %] 98 % (08/26/20 12:12 AM) Pulse Rate [55-90 bpm] 82 bpm (08/26/20 9:13 AM) 99 bpm *H* (08/26/20 12:12 AM) 80 bpm (08/25/20 5:07 PM) Body Mass Index [18.5-24.99] 23.95 (08/24/20 11:03 PM) 23.95 (08/24/20 6:23 PM) Blood Pressure [71-110/30-71 mm Hg] 95/59mm Hg (08/26/20 9:13 AM) 118/73mm Hg *H* (08/26/20 12:12 AM) 108/68mm Hg (08/25/20 9:30 PM) Respiratory Rate [16-30 br/min] 16 br/min (08/26/20 11:32 AM) 20 br/min (08/26/20 9:13 AM) 18 br/min (08/26/20 12:12 AM) Temperature [96.8-100.4 DegF] 97.8 DegF (08/26/20 9:13 AM) 98.4 DegF (08/26/20 12:12 AM) 97.8 DegF (08/25/20 5:07 PM) Mode of Delivery (Oxygen) Room air (08/26/20 12:12 AM) Blood pressure sites Arm, right (08/26/20 9:13 AM) Arm, left (08/25/20 5:07 PM) Arm, left (08/25/20 11:45 AM) Temperature Route Oral (08/26/20 9:13 AM) Oral (08/26/20 12:12 AM) Oral (08/25/20 5:07 PM) Dry Weight 59.8 kg (08/24/20 11:03 PM) 59.8 kg (08/24/20 6:23 PM) Weight Obtained Via Standing scale (08/24/20 6:23 PM) Dry Weight Obtained Via Standing scale (08/24/20 6:23 PM) Social History Social History Type Response Smoking Status Never (less than 100 in lifetime); Tobacco user in household: No entered on: 01/11/20 Sex
--- OUTSIDE RECORDS SUMMARY | 2023-11-29 23:59 | XMS_ITS | Continuity of Care Document ---
Author Organization [facility] Address [address] [address]- Care Team Providers Care Vegetable Harvest Worker Name Role Phone Bar MERCEDES, Juani Lewis Primary Care Physician [place] [facility] [place](s): 07/17/20 - 08/18/20 [facility] [address] [address] Attending Physician: Kelsey Martinez CNM Admitting Physician: Kelsey Martinez CNM Referring Physician: Leah Jang CNM Allergies, Adverse Reactions, Alerts Substance Reaction Severity Status NKA Active Immunizations Given and Recorded Vaccine Date Status Refusal Reason tetanus/diphtheria/pertussis, acel(Tdap) 05/29/20 Given Medications ferrous sulfate 325 mg oral tablet 1 tablet = 325 mg, By Mouth, Daily, # 30 tablet, 6 Refills, Maintenance, 06/06/20 15:04:00 EST, [id number], 159, cm, 05/29/20 13:51:00 EDT, Height, 52.3, [...]
--- OUTSIDE RECORDS SUMMARY | 2023-11-29 23:59 | XMS_ITS | Continuity of Care Document ---
Author Organization [facility] Address [address] [place] [address]- Care Team Providers Care Talent Development Director Name Role Phone Romulo Partida MD, Chapo Almeida Primary Care Physician Encounter [facility] [place] Date(s): 01/09/23 - 02/08/23 [facility] [address] [place], [place] [address] Allergies, Adverse Reactions, Alerts No Known Allergies Immunizations Given and Recorded Vaccine Date Status Refusal Reason tetanus/diphtheria/pertussis, acel(Tdap) 05/29/20 Given Meningococcal Conjugate Vaccine 10/06/17 Recorded Human Papillomavirus Vaccine 08/31/15 Recorded Hepatitis A Pediatric Vaccine 08/31/15 Recorded Medications cetirizine 5 mg oral tablet = 5 mg, By Mouth, Daily, # 30 tablet, 0 Refills, Maintenance, 10/10/22 9:26:00 EST, Tablet, [facility], Partial fill upon patient request if the prescription is for a schedule II opioid drug., 158, cm, 10/10/22 8:31:00 EST, Height Start Date: 10/10/22 Status: Ordered ferrous sulfate 325 mg oral tablet 1 tablet = 325 mg, By Mouth, Every other day, # 90 tablet, 0 Refills, Maintenance, 01/09/23 16:41:00 EDT, Tablet, [facility] #[id number], Partial fill upon patient request if the prescription is for a schedule II opioid drug., 158, cm, 01/09/23 14:45:00 E... Start Date: 01/09/23 Status: Ordered mirtazapine 15 mg oral tablet 1 tablet = 15 mg, By Mouth, Daily at bedtime, # 90 tablet, 1 Refills, Maintenance, 02/03/23 14:32:00 EDT, Tablet, [id number], Partial fill upon patient request if the prescription is for a schedule II opioid drug., 158, cm, 02/03/23 13:30:00 E... Start Date: 02/03/23 Status: Ordered Problem List Condition Confirmation Course Effective Dates Status Health St [facility] Informant History of chlamydia Confirmed 2019 Active Iron deficiency anemia Confirmed Active Marijuana use Confirmed 2019 Active Poor appetite Confirmed Active Hepatitis C Confirmed Active Social History Social History Type Response Smoking Status Never (less than 100 in lifetime); Tobacco user in household: No entered on: 01/11/20 Sex Patient Care team information Care Team Personnel Name: Romulo Partida MD, Chapo Almeida Position: [facility] Resident Member Role: PCP Address: Address: [address] [place] [address]- Care Team Related Persons Name: MAXINE LOVETT Address: home [address] [place] [address] Name: BONY JOYCE Address: [address] [place] [address] Name: RAFY SHERIFF Address: [place] [address] Name: BERNARDO PALMER Address: [address] Address: [address]
--- OUTSIDE RECORDS SUMMARY | 2023-11-29 23:59 | XMS_ITS | Continuity of Care Document ---
Author Organization [facility] Karol Kraus nIon [employer] Address [address] [place] [address], [place] [address]- Care Team Providers Care Textile Supervisor Name Role Phone Bar MERCEDES, Juani Lewis Primary Care Physician [phone] [id number] Date(s): 01/11/20 - 01/18/20 [facility] Karolcriselda AbdiIon [employer] [facility] [address] [place] [address], [address] [place] [address]- [facility] Attending Physician: Lei MERCEDES, Ayesha Ivory Allergies, Adverse Reactions, Alerts Substance Reaction Severity Status NKA Active Medications PNV Select oral tablet 1 tablet, By Mouth, Daily, 0 Refills, Maintenance, 01/11/20 16:04:00 EDT Start Date: 01/11/20 Status: Ordered Problem List Condition Effective Dates Status Health Status Inform ant History of chlamydia(Confirmed) 2019 Active Marijuana use(Confirmed) 2019 Active Procedures Procedure Date Related Diagnosis Body Site Status Therapeutic procedure 02/04/19 Completed Vital Signs Most recent to oldest [Reference Range]: 1 Height 159 cm (01/11/20 3:08 PM) Dry Weight 50.35 kg (01/11/20 3:08 PM) Social History Social History Type Response Smoking Status Never (less than 100 in lifetime); Tobacco user in household: No entered on: 01/11/20 Sex
--- OUTSIDE RECORDS SUMMARY | 2023-11-29 23:59 | XMS_ITS | Continuity of Care Document ---
Author Organization [facility] Address [address] [address]- Care Team Providers Care Customer Support Representative Name Role Phone Bar MERCEDES, Juani Lewis Primary Care Physician [phone] [place] [facility] [place](s): 03/05/22 - 04/04/22 [facility] [address] [address] Attending Physician: Sarah Beal Admitting Physician: Sarah Beal Referring Physician: AdmtrSarah Allergies, Adverse Reactions, Alerts No Known Allergies Immunizations Given and Recorded Vaccine Date Status Refusal Reason tetanus/diphtheria/pertussis, acel(Tdap) 05/29/20 Given Medications Depo-Provera Contraceptive 150 mg/mL intramuscular suspension 1 mL = 150 mg, Intramuscular, Every 3 months, # 1 mL, 3 Refills, Maintenance, 09/19/20 18:28:00 EST, Suspension, [facility], Partial fill upon patient request [...] each, 11 Refills, Maintenance, 03/12/22 17:28:00 EDT, [facility]/pharmacy #[id number], Partial fill upon patient request if [...] on: 01/11/20 Sex Care Team Personnel Name: Juani Dinero MD Address: [address] [place] [address] [facility] [place], [place] [address]
--- OUTSIDE RECORDS SUMMARY | 2023-11-29 23:59 | XMS_ITS | Continuity of Care Document ---
Author Organization [facility] ter Address [address] [place] [address]- Care Team Providers Care Selenium Plant Operator Name Role Phone Bar MERCEDES, Juani Lewis Primary Care Physician En[facility] [place] Date(s): 01/13/20 - 01/13/[address] [address]- [facility] Encounter Diagnosis Intrauterine (Final) - 01/13/20 Discharge Disposition: A-D/C Home Attending Physician: Gallo Medeiros MD Admitting Physician: Gallo Medeiros MD Referring Physician: Not on Staff, Referring MD Allergies, Adverse Reactions, Alerts Substance Reaction Severity Status NKA Active Medications PNV Select oral tablet 1 tablet, By Mouth, Daily, 0 Refills, Maintenance, 01/11/20 16:04:00 EDT Start Date: 01/11/20 Status: Ordered Problem List Condition Effective Dates Status Health Status Inform ant History of chlamydia(Confirmed) 2019 Active Marijuana use(Confirmed) 2019 Active Vital Signs Most recent to oldest [Reference Range]: 1 2 Oxygen Saturation [94-100 %] 100 % (01/13/20 6:27 PM) 100 % (01/13/20 4:42 PM) Pulse Rate [55-90 bpm] 67 bpm (01/13/20 6:27 PM) 70 bpm (01/13/20 4:42 PM) Blood Pressure [71-110/30-71 mm Hg] 106/ 66mm Hg (01/13/20 6:27 PM) 116/64mm Hg *H* (01/13/20 4:42 PM) Respiratory Rate [16-30 br/min] 20 br/mi n (01/13/20 6:27 PM) 18 br/min (01/13/20 4:42 PM) Temperature [96.8-100.4 DegF] 98.4 DegF (01/13/20 6:27 PM) 98.4 DegF (01/13/20 4:42 PM) Mode of Delivery (Oxygen) Room air (01/13/20 6:27 PM) Room air (01/13/20 4:42 PM) Blood pressure sites Arm, right (01/13/20 6:27 PM) Arm, right (01/13/20 4:42 PM) Temperature Route Oral (01/13/20 6:27 PM) Social History Social History Type Response Smoking Status Never (less than 100 in lifetime); Tobacco user in household: No entered on: 01/11/20 Sex
--- OUTSIDE RECORDS SUMMARY | 2023-11-29 23:59 | XMS_ITS | Continuity of Care Document ---
Author Organization [facility] Address [address] [place] [address]- Care Team Providers Care Passenger Booking Clerk Name Role Phone Romulo Partida MD, Chapo Almeida Primary Care Physician En[facility] Date(s): 12/11/22 - 01/10/[address] [address] Attending Physician: Sarah Beal Admitting Physician: AdmtrSarah Referring Physician: Admtr, ArIno Allergies, Adverse Reactions, Alerts No Known Allergies Immunizations Given and Recorded Vaccine Date Status Refusal Reason tetanus/diphtheria/pertussis, acel(Tdap) 05/29/20 Given Meningococcal Conjugate Vaccine 10/06/17 Recorded Human Papillomavirus Vaccine 08/31/15 Recorded Hepatitis A Pediatric Vaccine 08/31/15 Recorded Medications cetirizine 5 mg oral tablet = 5 mg, By Mouth, Daily, # 30 tablet, 0 Refills, Maintenance, 10/10/22 9:26:00 EST, Tablet, [facility], Partial fill upon patient request if the prescription is for a schedule II opioid drug., 158, cm, 10/10/22 8:31:00 EST, Height Start Date: 10/10/22 Status: Ordered ferrous sulfate 325 mg oral tablet 1 tablet = 325 mg, By Mouth, Every other day, # 90 tablet, 0 Refills, Maintenance, 01/09/23 16:41:00 EDT, Tablet, [facility]/pharmacy #[id number], Partial fill upon patient request if the prescription is for a schedule II opioid drug., 158, cm, 01/09/23 14:45:00 E... Start Date: 01/09/23 Status: Ordered mirtazapine 7.5 mg oral tablet 1 tablet = 7.5 mg, By Mouth, Daily at bedtime, # 30 tablet, 0 Refills, Maintenance, 01/09/23 16:40:00 EDT, [facility]/pharmacy #[id number], Partial fill upon patient request if the prescription is for a schedule II opioid drug., 158, cm, 01/09/23 14:45:00 EDT, Height Start Date: 01/09/23 Status: Ordered Problem List Condition Confirmation Course Effective Dates Status Health St [facility] Informant History of chlamydia Confirmed 2019 Active Iron deficiency anemia Confirmed Active Marijuana use Confirmed 2019 Active Poor appetite Confirmed Active Underweight Confirmed Active Hepatitis C Confirmed Active Social History Social History Type Response Smoking Status Never (less than 100 in lifetime); Tobacco user in household: No entered on: 01/11/20 Sex Patient Care team information Care Team Personnel Name: Romulo Partida MD, Chapo Almeida Position: S Resident Member Role: PCP Address: Address: [address] [place] [address]- Care Team Related Persons Name: MAXINE LOVETT Address: home [address] [place] [address] Name: JOYCE LOVETT Address: home [address] [place] [address] Name: RAFY SHERIFF Address: [place] [address] Name: BERNARDO PALMER Address: [address] Address: [address]
--- OUTSIDE RECORDS SUMMARY | 2023-11-29 23:59 | XMS_ITS | Continuity of Care Document ---
Author Organization [facility] Address [address] [address]- Care Team Providers Care Compliance Vice President Name Role Phone Bar MERCEDES, Juani Lewis Primary Care Physician [place] [place] 08/28/20 - [facility] [address] [address] Attending Physician: Not on Staff, Attending MD Admitting Physician: Kelsey Martinez CNM Referring Physician: Michelle Lee CNM Allergies, Adverse Reactions, Alerts Substance Reaction Severity Status NKA Active Immunizations Given and Recorded Vaccine Date Status Refusal Reason tetanus/diphtheria/pertussis, acel(Tdap) 05/29/20 Given Medications Depo-Provera Contraceptive 150 mg/mL intramuscular suspension 1 mL = 150 mg, Intramuscular, Every 3 months, # 1 mL, 3 Refills, Maintenance, 09/19/20 18:28:00 EST, Suspension, [facility], Partial fill upon patient [...]
--- OUTSIDE RECORDS SUMMARY | 2023-11-29 23:59 | XMS_ITS | Continuity of Care Document ---
Author Organization [facility] Address [address] [address]- Care Team Providers Care Health Information Assistant Name Role Phone Bar MERCEDES, Juani Lewis Primary Care Physician [phone] [place] [facility](s): 05/10/20 - 06/09/20 [facility] [address] [address] Allergies, Adverse Reactions, Alerts Substance Reaction Severity Status NKA Active Immunizations Given and Recorded Vaccine Date Status Refusal Reason tetanus/diphtheria/pertussis, acel(Tdap) 05/29/20 Given Medications ferrous sulfate 325 mg oral tablet 1 tablet = 325 mg, By Mouth, Daily, # 30 tablet, 6 Refills, Maintenance, 06/06/20 15:04:00 EST, Tablet, [id number], 159, cm, 05/29/20 13:51:00 EDT, Height, 52.3, [...]
--- OUTSIDE RECORDS SUMMARY | 2023-11-29 23:59 | XMS_ITS | Continuity of Care Document ---
Author Organization [facility] Address [address] [place] [address]- Care Team Providers Care Dye Blender Name Role Phone Bar MERCEDES, Juani Lewis Primary Care Physician [facility] Date(s): 12/31/19 - 01/30/[address] [facility] [address] [place] [address]- [facility] Attending Physician: Sarah Beal Admitting Physician: Sarah Beal Referring Physician: AdmtrSarah Allergies, Adverse Reactions, Alerts Substance Reaction Severity Status NKA Active Medications PNV Select oral tablet 1 tablet, By Mouth, Daily, 0 Refills, Maintenance, 01/11/20 16:04:00 EDT Start Date: 01/11/20 Status: Ordered Problem List Condition Effective Dates Status Health Status Inform ant History of chlamydia(Confirmed) 2019 Active Marijuana use(Confirmed) 2019 Active Social History Social History Type Response Smoking Status Never (less than 100 in lifetime); Tobacco user in household: No entered on: 01/11/20 Sex
--- OUTSIDE RECORDS SUMMARY | 2023-11-29 23:59 | XMS_ITS | Continuity of Care Document ---
Author Organization [facility] Address [address] [place] [address]- Care Team Providers Care Chain Person Name Role Phone Romulo Partida MD, Chapo Almeida Primary Care Physician [phone] Encounter [facility] Date(s): 02/03/23 - 03/05/23 [facility] [address] [place] [address]- Attending Physician: Sarah Beal Admitting Physician: Sarah [...] 0 Refills, Maintenance, 10/10/22 9:26:00 EST, Tablet, [facility], Partial fill upon patient request if the prescription is for a schedule II opioid drug., 158, cm, 10/10/22 8:31:00 EST, Height Start Date: 10/10/22 Status: Ordered ferrous sulfate 325 mg oral tablet 1 tablet = 325 mg, By Mouth, Every other day, # 90 tablet, 0 Refills, Maintenance, 01/09/23 16:41:00 EDT, Tablet, [facility]/pharmacy #[id number], Partial fill upon patient request if the prescription is for a schedule II opioid drug., 158, cm, 01/09/23 14:45:00 E... Start Date: 01/09/23 Status: Ordered mirtazapine 15 mg oral tablet 1 tablet = 15 mg, By Mouth, Daily at bedtime, # 90 tablet, 1 Refills, Maintenance, 02/03/23 14:32:00 EDT, Tablet, [id number], Partial fill upon patient request if the [...] Name: Romulo Partida MD, Chapo Almeida Position: [facility] Resident Member Role: PCP Address: Address: [address] [place] [address] [place] [address]- Care Team Related Persons Name: MAXINE LOVETT Address: home [address] [place] [address] Name: JOYCE LOVETT Address: home [address] [place] [address] Name: RAFY SHERIFF Address: [place] [address] Name: BERNARDO PALMER Address: [address] Address: [address]
--- OUTSIDE RECORDS SUMMARY | 2023-11-29 23:59 | XMS_ITS | Continuity of Care Document ---
Author Organization [facility] [employer] Address [address] [facility], [address] [address]- Care Team Providers Care Banana Grader Name Role Phone Bar MERCEDES, Juani Lewis Primary Care Physician [place] [facility] [place](s): 02/03/20 - 02/10/20 [facility] [employer] [address] [facility], [address] [place] [address]- [facility] Attending Physician: Mia Jarquin MD Referring Physician: Anna Pimentel CNM Allergies, Adverse [...] , unspecified trimester(Confirmed) Active Hepatitis C(Confirmed) Active Social History Social History Type Response Smoking Status Never (less than 100 in lifetime); Tobacco user in household: No entered on: 01/11/20 Sex
--- OUTSIDE RECORDS SUMMARY | 2023-11-29 23:59 | XMS_ITS | Continuity of Care Document ---
Author Organization [facility] Address [address] [address]- Care Team Providers Care Screen Handler Name Role Phone Bar MERCEDES, Juani Lewis Primary Care Physician [place] [facility] [place]03[place]20 - [facility] [address] [address] Attending Physician: Marilia Nguyen CNM Admitting Physician: Marilia Nguyen CNM Referring Physician: Flavia Ford CNM Allergies, Adverse Reactions, Alerts Substance Reaction Severity Status NKA Active Immunizations Given and Recorded Vaccine Date Status Refusal Reason tetanus/diphtheria/pertussis, acel(Tdap) 05/29/20 Given Medications Depo-Provera Contraceptive 150 mg/mL intramuscular suspension 1 mL = 150 mg, Intramuscular, Every 3 months, # 1 mL, 3 Refills, Maintenance, 09/19/20 18:28:00 EST, Suspension, [facility], Partial fill upon patient request [...]
--- OUTSIDE RECORDS SUMMARY | 2023-11-30 | XMS_ITS | Continuity of Care Document ---
Author Organization [facility] Address Unknown Care Team Providers Care Wildlife Management Professor Name Role Phone Juani Dinero MD Primary Care Physician [place] [id number] Date(s): 01/31/22 - 03/15/22 [facility] Attending Physician: Not on Staff, Attending MD Referring Physician: Juani Dinero MD Allergies, Adverse Reactions, Alerts No Known [...] each, 11 Refills, Maintenance, 03/12/22 17:28:00 EDT, [facility]/pharmacy #[id number], Partial fill upon patient request [...]
--- OUTSIDE RECORDS SUMMARY | 2023-11-30 | XMS_ITS | Continuity of Care Document ---
Author Organization [facility] Address [address] [place] [address]- Care Team Providers Care Cone Machine Operator Name Role Phone Romulo Partida MD, Chapo Almeida Primary Care Physician [phone] Encounter [facility] Date(s): 07/17/23 - 08/16/23 [facility] [address] [place] [address]- Attending Physician: Sarah Beal Admitting Physician: Sarah [...] 07/17/23 16:51:00 EST, Route to Pharmacy Electronically, [facility]/pharmacy #[id number], Partial fill upon patient request if the [...] Name: Romulo Partida MD, Chapo Almeida Position: [facility] Resident Member Role: PCP Address: Address: [address] [place] [address] [place] [address]- Care Team Related Persons Name: MAXINE LOVETT Address: home [address] [place] [address] Name: JOYCE LOVETT Address: home [address] [place] [address] Name: RAFY SHERIFF Address: [place] [address] Name: BERNARDO PALMER Address: [address] Address: [address]
--- OUTSIDE RECORDS SUMMARY | 2023-11-30 | XMS_ITS | Continuity of Care Document ---
Author Organization [facility] Karol Larose Address [address] [place] [address], 4t [place] [address]- Care Team Providers Care Mental Health Aides Teacher Name Role Phone Bar MERCEDES, Juani Lewis Primary Care Physician En[facility] [place] Date(s): 07/05/20 - 08/04/20 [facility] [address] [facility], 4th [place] [address]- Attending Physician: AdmSarah hobbs Admitting Physician: Admtr, Sarah Referring Physician: Admtr, Ar8 Allergies, Adverse Reactions, Alerts Substance Reaction Severity Status NKA Active Immunizations Given and Recorded Vaccine Date Status Refusal Reason tetanus/diphtheria/pertussis, acel(Tdap) 05/29/20 Given Medications ferrous sulfate 325 mg oral tablet 1 tablet = 325 mg, By Mouth, Daily, # 30 tablet, 6 Refills, Maintenance, 06/06/20 15:04:00 EST, Tablet, [facility] #[id number], 159, cm, 05/29/20 13:51:00 EDT, Height, 52.3, [...]
--- OUTSIDE RECORDS SUMMARY | 2023-11-30 | XMS_ITS | Continuity of Care Document ---
Author Organization [facility] Address [address] [address]- Care Team Providers Care Advertising Traffic Manager Name Role Phone Bar MERCEDES, Juani Lewis Primary Care Physician [facility] Date(s): 03/24/20 - [facility] [address] [place] [address]- [facility] Allergies, Adverse Reactions, Alerts Substance Reaction Severity [...]
--- OUTSIDE RECORDS SUMMARY | 2023-11-30 | XMS_ITS | Continuity of Care Document ---
Author Organization [facility] Address [address] [address]- Care Team Providers Care Roadability Machine Operator Name Role Phone Bar MERCEDES, Juani Lewis Primary Care Physician [place] [facility] [place] Date(s): 05/06/22 - 06/05/22 [facility] [address] [place] [address] Allergies, Adverse Reactions, Alerts No Known Allergies Immunizations Given and Recorded Vaccine Date Status Refusal Reason tetanus/diphtheria/pertussis, acel(Tdap) 05/29/20 Given Medications Depo-Provera Contraceptive 150 mg/mL intramuscular suspension 1 mL = 150 mg, Intramuscular, Every 3 months, # 1 mL, 3 Refills, Maintenance, 09/19/20 18:28:00 EST, Suspension, [facility], Partial fill upon patient [...] each, 11 Refills, Maintenance, 05/06/22 17:42:00 EDT, [facility][id number], Partial fill upon patient request if the [...] on: 01/11/20 Sex Patient Care team information Personnel Name: Bar MERCEDES, Juani Lewis Address: Address: [address] [place] [address] [facility] [place], [place] [address]
--- OUTSIDE RECORDS SUMMARY | 2023-11-30 | XMS_ITS | Continuity of Care Document ---
Author Organization [facility] Address [address] [address]- Care Team Providers Care Accessibility Lift Technician Name Role Phone Bar MERCEDES, Juani Lewis Primary Care Physician [facility] Date(s): 08/23/20 - [facility]22/20 [facility] [address] [address] Allergies, Adverse Reactions, Alerts Substance Reaction Severity [...]
--- OUTSIDE RECORDS SUMMARY | 2023-11-30 | XMS_ITS | Continuity of Care Document ---
Author Organization [facility] Address [address] [address]- Care Team Providers Care Corporate Meeting Planner Name Role Phone Bar MERCEDES, Juani Lewis Primary Care Physician [place] [facility] [place] 07/26/20 - 08/30/20 [facility] [address] [place] [address] Attending Physician: Not on Staff, Attending MD [...] 08/26/20 17:08:00 EST, Route to Pharmacy Electronically, [facility] #[id number], Partial fill upon patient request if th... [...] 09/15/20 17:09:00 EST, 08/26/20 17:09:00 EST, Tablet, [facility] #[id number], Partial fill upon patient request if the [...]
--- OUTSIDE RECORDS SUMMARY | 2023-11-30 | XMS_ITS | Continuity of Care Document ---
Author Organization [facility] Address [address] [address]- Care Team Providers Care Sorority Supervisor Name Role Phone Romulo Partida MD, Chapo Almeida Primary Care Physician [phone] [place] [facility] [place] 09/02/23 - 10/02/23 [facility] [address] [place] [id number] Allergies, Adverse Reactions, Alerts No Known [...] 07/17/23 16:51:00 EST, Route to Pharmacy Electronically, [facility]/pharmacy #[id number], Partial fill upon patient [...] Team Personnel Name: Chapo Arteaga MD Position: [facility] Resident Member Role: PCP Address: Address: [address] [place] [address] [place] [address]- Care Team Related Persons Name: MAXINE LOVETT Address: home [address] [place] [address] Name: JOYCE LOVETT Address: home [address] [place] [address] Name: RAFY SHERIFF Address: [place] [address] Name: BERNARDO PALMER Address: [address] Address: [place] [address]
--- OUTSIDE RECORDS SUMMARY | 2023-11-30 | XMS_ITS | Continuity of Care Document ---
Author Organization [facility] Address [address] [place] [address]- Care Team Providers Care Tree Puller Name Role Phone Chapo Arteaga MD Primary Care Physician [phone] Encounter [facility] Date(s): 12/05/22 - 01/04/23 [facility] [address] [place], [place] [address]- us Attending Physician: Sarah Beal Admitting Physician: Sarah [...] 0 Refills, Maintenance, 10/10/22 9:26:00 EST, Tablet, [facility], Partial fill upon patient request if the prescription is for a schedule II opioid drug., 158, cm, 10/10/22 8:31:00 EST, Height Start Date: 10/10/22 Status: Ordered Problem List Condition Confirmation Course Effective Dates Status Health [facility] Informant History of chlamydia Confirmed 2019 Active Marijuana use Confirmed 2020 Active Hepatitis C Confirmed Active Social History Social History Type Response Smoking Status Never (less than 100 in lifetime); Tobacco user in household: No entered on: 01/11/20 Sex Patient Care team information Care Team Personnel Name: Chapo Arteaga MD Position: S Resident Member Role: PCP Address: Address: [address] [facility] [place] [address]- Care Team Related Persons Name: LOVETTMAXINE Address: home [address] [place] [address] Name: JOYCE LOVETT Address: home [address] [place] [address] Name: RAFY SHERIFF Address: [place] [address] Name: BERNARDO PALMER Address: [address] Address: [address]
--- OUTSIDE RECORDS SUMMARY | 2023-11-30 | XMS_ITS | Continuity of Care Document ---
Author Organization [facility] Adult [facility] Address [address] [place] [address]- Care Team Providers Care Soil Science Technical Officer Name Role Phone Chapo Arteaga MD Primary Care Physician Encounter [facility] Date(s): 11/05/22 - 01/04/23 [facility] [address], [place] [id number]- us Attending Physician: Nikolas Powell MD Admitting Physician: Nikolas Powell MD Referring Physician: Chapo Arteaga MD Allergies, Adverse Reactions, Alerts No Known Allergies Immunizations Given and Recorded Vaccine Date Status Refusal Reason tetanus/diphtheria/pertussis, acel(Tdap) 05/29/20 Given Meningococcal Conjugate Vaccine 10/06/17 Recorded Human Papillomavirus Vaccine 08/31/15 Recorded Hepatitis A Pediatric Vaccine 08/31/15 Recorded Medications cetirizine 5 mg oral tablet = 5 mg, By Mouth, Daily, # 30 tablet, 0 Refills, Maintenance, 10/10/22 9:26:00 EST, Tablet[facility] upon patient request if [...] S Resident Member Role: PCP Address: Address: [address] [place] [address] [place] [address]- Care Team Related Persons Name: MAXINE LOVETT Address: home [address] [place] [address] Name: JOYCE LOVETT Address: home [address] [place] [address] Name: RAFY SHERIFF Address: [place] [address] Name: BERNARDO PALMER Address: [id number] Address: [address] [address]
--- OUTSIDE RECORDS SUMMARY | 2023-11-30 | XMS_ITS | Continuity of Care Document ---
Author Organization [facility] Adult Medicine Address [address] [place] [address]- Care Team Providers Care Blueprint Developer Name Role Phone Chapo Arteaga MD Primary Care Physician [phone] Encounter [facility] [id number] Date(s): 10/10/22 - 11/30/22 [facility] Adult [facility] [address] [place] [address]- [place] Attending Physician: Nikolas Powell MD Admitting [...] 0 Refills, Maintenance, 10/10/22 9:26:00 EST, Tablet, [facility] Partial fill upon patient request if [...] Resident Member Role: PCP Address: Address: [address] [place], [place] [address] Care Team Related Persons Name: MAXINE LOVETT Address: home [address] [place] [address] Name: JOYCE LOVETT Address: home [address] [place] [address] Name: RAFY SHERIFF Address: [place] [address] Name: BERNARDO PALMER Address: [address] Address: [address] [address]
--- OUTSIDE RECORDS SUMMARY | 2023-11-30 | XMS_ITS | Continuity of Care Document ---
Author Organization [facility] Karol Larose Address [address] [place] [address], [address] [place] [address]- Care Team Providers Care Fiber Technologist Name Role Phone Bar MERCEDES, Juani Lewis Primary Care Physician [phone] [place] [facility] [place] Date(s): 07/05/20 - 07/12/20 [facility] Karol Fangs [facility] [address] [facility], 4th Floor [place], [place] [address] Attending Physician: Flavia Ford CNM Allergies, Adverse Reactions, Alerts Substance Reaction Severity Status NKA Active Immunizations Given and Recorded Vaccine Date Status Refusal Reason tetanus/diphtheria/pertussis, acel(Tdap) 05/29/20 Given Medications ferrous sulfate 325 mg oral tablet 1 tablet = 325 mg, By Mouth, Daily, # 30 tablet, 6 Refills, Maintenance, 06/06/20 15:04:00 EST, Tablet, [id number], 159, cm, 05/29/20 13:51:00 EDT, Height, 52.3, [...]
--- OUTSIDE RECORDS SUMMARY | 2023-11-30 | XMS_ITS | Continuity of Care Document ---
Author Organization [facility] Address [address] [place] [address]- Care Team Providers Care Phlebotomist Associate Name Role Phone Juani Dinero MD Primary Care Physician [phone] Encounter [facility] [place] Date(s): 05/30/22 - 08/23/[address] [address] Attending Physician: Mariano Stein OD Admitting Physician: Mariano Stein OD Allergies, Adverse Reactions, Alerts No Known Allergies [...] each, 11 Refills, Maintenance, 05/06/22 17:42:00 EDT, [id number], Partial fill upon patient request if the [...] Team Personnel Name: Juani Dinero MD Position: [facility] General Pediatrics MD Member Role: PCP Address: Address: [address] [place] [address] [facility] [place] [address]- Care Team Related Persons Name: MAXINE LOVETT Address: home [address] [place] [address] Name: JOYCE LOVETT Address: home [address] [place] [address] Name: RAFY SHERIFF Address: [place] [address] Name: BERNARDO PALMER Address: [facility] [address] Address: [address]
--- NOTE | 2023-11-30 00:03 | ED_ITS ---
HPI - General Adult General Chief complaint: Nausea/Vomiting/Diarrhea Stated complaint: food poisining Time Seen by Provider: 11/29/23 23:49 Source: patient and RN notes reviewed Mode of arrival: ambulatory Limitations: no limitations History of Present Illness HPI narrative: 23-year-old female presents for evaluation of vomiting and diarrhea. Patient reports that about 6 hours ago she ate a Veronica cheese steak that she splint with her friend She states that a few hours later she started to feel warm and then became nauseous and vomited She reports that she would 5 episodes of diarrhea Patient has had lower crampy abdominal pain that has improved since the diarrhea started She reports that her friend had identical symptoms Patient denies any medical or surgical history Related Data Previous Rx's ?Medication ?Instructions ?Recorded erythromycin 5 mg/gram (0.5 %) eye 0.5 inch ophthalmic (eye) Q4H #3.5 07/26/23 ointment grams ondansetron 4 mg disintegrating 4 mg PO Q8H PRN nausea and 11/30/23 tablet vomiting #20 tabs Allergies Allergy/AdvReac Type Severity Reaction Status Date / Time No Known Allergies Allergy Verified 11/29/23 23:16 Review of Systems 2 Constitutional: Constitutional: Denies body ache(s), Denies chills, Denies fever(s) and Reports malaise Eyes: Eyes: Denies blurry vision Cardiovascular: Cardiovascular: Denies chest pain and Denies dyspnea Respiratory: Respiratory: Denies cough and Denies dyspnea Gastrointestinal: Gastrointestinal: Reports abdominal pain, Denies hematochezia, Reports diarrhea, Reports loose stools, Reports nausea and Reports vomiting Genitourinary: Genitourinary: Denies dysuria Musculoskeletal: Musculoskeletal: Denies back pain [facility] Social History Social History Smoked in Last 30 Days: No Use of substances other than those prescribed or required for medical reasons: No Advance Directives: No Advance Directives Information Provided: No Do you have a plan to hurt others: No Plan Patient : No Physical Exam ED Vital Signs: Vital Signs - 24 hr 11/29/23 23:15 Temperature 97.9 F Pulse Rate 80 Respiratory Rate 16 Blood Pressure 110/65 Pulse Oximetry 97 Oxygen Delivery Method Room Air BMI result Body Mass Index 23.5 Const General: healthy appearing, comfortable, no acute distress, alert and awake Nutritional Appearance: well nourished Orientation/consciousness: patient oriented x3 HENMT Head: Yes normocephalic and Yes atraumatic Eyes Eyelids: Yes eyelids normal Conjunctivae: conjunctivae normal Sclerae: sclerae normal Corneas: corneas normal Pupils: Equal, round and reactive pupils present EOM: EOMs intact bilaterally Neck Neck: Yes full ROM Resp Effort & Inspection: normal respiratory effort, able to speak in complete sentences and not labored GI Inspection: No distended Palpation (GI): Soft to palpation, not firm, nontender, no guarding and not rigid Skin General skin exam: no rashes or lesions noted and elasticity normal Neuro General: patient oriented x3 Cranial nerves: Yes Equal, round and reactive pupils present and Yes Bilaterally intact EOM present Cognition (Neuro): normal cognition Extrem Other: Moving all extremities well without any obvious deformities Medications Administered Discontinued Medications Generic Name Dose Route Start Last Admin Trade Name Freq PRN Reason Stop Dose Admin Ondansetron HCl 4 mg 11/29/23 23:52 11/29/23 23:59 Ondansetron Odt 4 Mg Tab.Rapdis TRANSLINGU 11/29/23 23:53 4 mg ONCE ONE Administration Medical Decision Making Medical Decision Making [facility] Narrative: 23-year-old female with no significant past medical history presents for evaluation of vomiting and diarrhea after eating food from bending machine that she should with a friend. Both her friend of similar symptoms. Symptoms likely related to gastroenteritis. Will check basic labs including LFTs. Patient's vital signs are stable, she will be given p.o. Zofran Differential Diagnosis Differential Diagnoses: The differential diagnosis associated with the presentation includes Gastroenteritis Vomiting and diarrhea Dehydration Crohn's disease Pancreatitis Lab Data [facility] Lab Attestation statement: I reviewed the patient's lab results. No leukocytosis. The patient has a mild normocytic anemia. Normal platelet count. Are no significant electrolyte abnormalities. 11/29/23 23:30 11/29/23 23:30 Labs: Lab Results 11/29/23 Range/Units 23:30 WBC 8.5 (4.8-10.8) X10*3/uL RBC 4.09 L (4.20-5.50) X10*6/uL Hgb 11.9 L (12.0-16.0) g/dl Hct 35.3 L (37.0-47.0) % MCV 86.3 (80.0-98.0) fL MCH 29.1 (27.0-33.0) pg MCHC 33.7 (31.0-35.0) g/dl RDW 13.4 (11.0-16.0) % Plt Count 222 (160-400) X10*3/uL MPV 8.9 L (9.4-12.3) fL Immature Gran % (Auto) 0.4 (0.0-0.4) % Neut % (Auto) 49.0 (45-73) % Lymph % (Auto) 40.7 H (20-40) % Greenlee % (Auto) 6.7 (2-11) % Eos % (Auto) 3.0 (0-4) % Baso % (Auto) 0.2 (0-2) % Lymph # (Auto) 3.4 (1.2-4.9) X10*3/uL Greenlee # (Auto) 0.6 (0.1-1.2) X10*3/uL Eos # (Auto) 0.3 (0.0-0.4) X10*3/uL Baso # (Auto) 0.0 (0.0-0.2) X10*3/uL Abs Immat Gran (auto) 0.03 (0.00-0.03) X10*3/uL Absolute Neuts (auto) 4.1 (2.0-8.3) x10*3/uL Absolute Nucleated RBC 0.000 (0.0-0.012) X10*3/uL Nucleated RBC % (auto) 0.0 (0.0-0.2) /100WBC Sodium 142 (135-145) mmol/L Potassium 4.0 (3.3-5.1) mmol/L Chloride 109 H (96-108) mmol/L Carbon Dioxide 23 (22-29) mmol/L Anion Gap 14 (12-20) BUN 12 (9-16) mg/dL Creatinine 0.70 (0.5-1.4) mg/dL Estim Creat Clear Calc 99.6 Estimated GFR > 60 Random Glucose 111 (60-115) mg/dL Calcium 9.0 (8.4-10.2) mg/dL Total Bilirubin 0.2 (0.0-1.0) mg/dL AST 12 (5-31) U/L ALT 10 (0-31) U/L Alkaline Phosphatase 87 (39-117) U/L Total Protein 6.8 (6.5-8.0) g/dL Albumin 4.1 (3.5-5.0) g/dL Discharge Plan Discharge Clinical Impression: Abdominal pain, vomiting, and diarrhea Patient Disposition: Home, Self-Care Instructions: Gastroenteritis (ED) Additional Instructions: Drink lots of fluids, small sips at a time. You may use Zofran as needed for nausea and vomiting. You may use [id number] Imodium/loperamide as needed for diarrhea Follow-up with your primary doctor Return for new or worsening symptoms Prescriptions: New ondansetron 4 mg tablet,disintegrating 4 mg PO Q8H PRN (Reason: nausea and vomiting) Qty: 20 0RF No Action erythromycin 5 mg/gram (0.5 %) ointment 0.5 inch ophthalmic (eye) Q4H Qty: 3.5 0RF Stand Alone Forms: Work/School Release Print Language: Yakut
[2023-11-30 00:37] LABS: HCG Quantitative < 2 mIU/mL
[2023-11-30 00:57] VITALS: BP 101/62; PULSE 64; RESP 14; TEMP 36.5; O2SAT 98
[2023-11-30 01:00] VITALS: BP 101/62; PULSE 64; RESP 14; TEMP 36.5; O2SAT 98
== END 2023-11-30 01:01 | disposition home or self-care (01) ==
PROVIDERS: Physician Assistant; Emergency Provider Internal Medicine
DX: R10.9 Unspecified abdominal pain (principal); R11.10 Vomiting, unspecified; R19.7 Diarrhea, unspecified
CPT/HCPCS: 36415; 80053; 84702; 85025; 99283; 99284